=== PATIENT | male | born 1945 | race Hispanic/Latino ===

== ENCOUNTER → 2017-04-02 | Outpatient (CLI) | payer BC ==
[~2017-04-02] MED LIST: AMIODARONE HCL200 MG PO; ASPIR 8181 MG PO; ATORVASTATIN CA20 MG PO; BASAGLAR SC; CARVEDILOL12.5 MG PO; CEFEPIME-D1 GM/50 ML IVP; CLOPIDOGREL75 MG PO; COLLAGENASE OINTMENT 30 GM TUBE ONE; FUROSEMIDE40 MG PO; NIFEDIPINE10 MG PO; VANCOMYCIN1 GM/250 M IV
== END ==
LOC: WCC 11:07
PROVIDERS: ATTEND Podiatrist Foot & Ankle Surgery
DX: E11.621 Type 2 diabetes mellitus with foot ulcer (principal); R60.0 Localized edema; B96.5 Pseudomonas (aeruginosa) (mallei) (pseudomallei) as the cause of diseases classified elsewhere; B95.2 Enterococcus as the cause of diseases classified elsewhere; M86.671 Other chronic osteomyelitis, right ankle and foot; L97.512 Non-pressure chronic ulcer of other part of right foot with fat layer exposed; N18.3 Chronic kidney disease, stage 3 (moderate); I87.2 Venous insufficiency (chronic) (peripheral); I10 Essential (primary) hypertension; E78.2 Mixed hyperlipidemia; E03.8 Other specified hypothyroidism

== ENCOUNTER → 2017-04-14 | Outpatient (CLI) | payer BC ==
[~2017-04-14] MED LIST changes: -COLLAGENASE OINTMENT 30 GM TUBE ONE; +MINERAL OIL/PETROLAT/GLYCERI 6OZ BTL ONE
== END ==
LOC: WCC 10:48
PROVIDERS: ATTEND Podiatrist Foot & Ankle Surgery
DX: E11.621 Type 2 diabetes mellitus with foot ulcer (principal); M86.671 Other chronic osteomyelitis, right ankle and foot; L97.512 Non-pressure chronic ulcer of other part of right foot with fat layer exposed; R60.0 Localized edema; N18.3 Chronic kidney disease, stage 3 (moderate); I10 Essential (primary) hypertension; I87.2 Venous insufficiency (chronic) (peripheral); E78.2 Mixed hyperlipidemia; E03.8 Other specified hypothyroidism; B96.5 Pseudomonas (aeruginosa) (mallei) (pseudomallei) as the cause of diseases classified elsewhere

== ENCOUNTER → 2017-04-21 | Outpatient (CLI) | payer BC ==
[~2017-04-21] MED LIST changes: -MINERAL OIL/PETROLAT/GLYCERI 6OZ BTL ONE
== END ==
LOC: WCC 11:01
PROVIDERS: ATTEND Podiatrist Foot & Ankle Surgery
DX: E11.621 Type 2 diabetes mellitus with foot ulcer (principal); L97.512 Non-pressure chronic ulcer of other part of right foot with fat layer exposed; R60.0 Localized edema; M86.671 Other chronic osteomyelitis, right ankle and foot; N18.3 Chronic kidney disease, stage 3 (moderate); I87.2 Venous insufficiency (chronic) (peripheral); I10 Essential (primary) hypertension; E78.2 Mixed hyperlipidemia; E03.8 Other specified hypothyroidism; B96.5 Pseudomonas (aeruginosa) (mallei) (pseudomallei) as the cause of diseases classified elsewhere

== ENCOUNTER → 2017-05-07 | Outpatient (CLI) | payer BC | LOC: WCC 13:30 | PROVIDERS: ATTEND Podiatrist Foot & Ankle Surgery | DX: E11.621 Type 2 diabetes mellitus with foot ulcer (principal); M86.671 Other chronic osteomyelitis, right ankle and foot; L97.512 Non-pressure chronic ulcer of other part of right foot with fat layer exposed; R60.0 Localized edema; I87.2 Venous insufficiency (chronic) (peripheral); B96.5 Pseudomonas (aeruginosa) (mallei) (pseudomallei) as the cause of diseases classified elsewhere; N18.3 Chronic kidney disease, stage 3 (moderate); I10 Essential (primary) hypertension; E78.2 Mixed hyperlipidemia; E03.8 Other specified hypothyroidism ==

== ENCOUNTER → 2017-05-21 | Outpatient (CLI) | payer BC | LOC: WCC 13:27 | PROVIDERS: ATTEND Podiatrist Foot & Ankle Surgery | DX: E11.621 Type 2 diabetes mellitus with foot ulcer (principal); M86.671 Other chronic osteomyelitis, right ankle and foot; L97.512 Non-pressure chronic ulcer of other part of right foot with fat layer exposed; L97.519 Non-pressure chronic ulcer of other part of right foot with unspecified severity; R60.0 Localized edema; I87.2 Venous insufficiency (chronic) (peripheral); B96.5 Pseudomonas (aeruginosa) (mallei) (pseudomallei) as the cause of diseases classified elsewhere; N18.3 Chronic kidney disease, stage 3 (moderate); I10 Essential (primary) hypertension; E78.2 Mixed hyperlipidemia; E03.8 Other specified hypothyroidism ==

== ENCOUNTER → 2017-05-23 | Outpatient (CLI) | payer BC ==
[~2017-05-23] MED LIST changes: +MINERAL OIL/PETROLAT/GLYCERI 6OZ BTL ONE
== END ==
LOC: WCC 11:30
PROVIDERS: ATTEND Podiatrist Foot & Ankle Surgery
DX: E11.621 Type 2 diabetes mellitus with foot ulcer (principal); M86.671 Other chronic osteomyelitis, right ankle and foot; L97.512 Non-pressure chronic ulcer of other part of right foot with fat layer exposed; L97.519 Non-pressure chronic ulcer of other part of right foot with unspecified severity; R60.0 Localized edema; N18.3 Chronic kidney disease, stage 3 (moderate); I87.2 Venous insufficiency (chronic) (peripheral); I10 Essential (primary) hypertension; E78.2 Mixed hyperlipidemia; E03.8 Other specified hypothyroidism; B96.5 Pseudomonas (aeruginosa) (mallei) (pseudomallei) as the cause of diseases classified elsewhere

== ENCOUNTER → 2017-05-28 | Outpatient (CLI) | payer BC ==
[~2017-05-28] MED LIST changes: -MINERAL OIL/PETROLAT/GLYCERI 6OZ BTL ONE
== END ==
LOC: WCC 12:00
PROVIDERS: ATTEND Podiatrist Foot & Ankle Surgery
DX: E11.621 Type 2 diabetes mellitus with foot ulcer (principal); M86.671 Other chronic osteomyelitis, right ankle and foot; L97.512 Non-pressure chronic ulcer of other part of right foot with fat layer exposed; L97.519 Non-pressure chronic ulcer of other part of right foot with unspecified severity; R60.0 Localized edema; N18.3 Chronic kidney disease, stage 3 (moderate); I10 Essential (primary) hypertension; I87.2 Venous insufficiency (chronic) (peripheral); B96.5 Pseudomonas (aeruginosa) (mallei) (pseudomallei) as the cause of diseases classified elsewhere; E78.2 Mixed hyperlipidemia; E03.8 Other specified hypothyroidism

== ENCOUNTER → 2017-05-30 | Outpatient (CLI) | payer BC ==
[~2017-05-30] MED LIST changes: +MINERAL OIL/PETROLAT/GLYCERI 6OZ BTL ONE
== END ==
LOC: WCC 11:04
PROVIDERS: ATTEND Podiatrist Foot & Ankle Surgery
DX: E11.621 Type 2 diabetes mellitus with foot ulcer (principal); M86.671 Other chronic osteomyelitis, right ankle and foot; L97.512 Non-pressure chronic ulcer of other part of right foot with fat layer exposed; R60.0 Localized edema; I87.2 Venous insufficiency (chronic) (peripheral); B96.5 Pseudomonas (aeruginosa) (mallei) (pseudomallei) as the cause of diseases classified elsewhere; N18.3 Chronic kidney disease, stage 3 (moderate); I10 Essential (primary) hypertension; E78.2 Mixed hyperlipidemia; E03.8 Other specified hypothyroidism

== ENCOUNTER → 2017-09-26 | Day surgery (SDC) | payer BC ==
[2017-09-25 12:52] LABS: BASOPHILS % 0.4 % (0.0-1.0); EOSINOPHILS # (AUTO) 0.3 (0.0-0.4); EOSINOPHILS % 3.8 % (0.0-6.0); HEMOGLOBIN 9.9 g/dL (14.0-18.0); LYMPHOCYTES # (AUTO) 1.8 (1.0-3.2); LYMPHOCYTES % 24.1 % (18.0-39.1); MEAN CORPUSCULAR HGB CONC 31.9 g/dL (31-35); MEAN CORPUSCULAR VOLUME 90.9 fL (81-99); MONOCYTES # (AUTO) 0.6 (0.2-0.8); MONOCYTES % 8.4 % (4.4-11.3); NEUTROPHILS # (AUTO) 4.7 (2.1-6.9); NEUTROPHILS % 62.6 % (38.7-80.0); PLATELET COUNT 227 x10e3/uL (140-360); RED BLOOD COUNT 3.41 x10e6/uL (4.3-5.7); RED CELL DISTRIBUTION WIDTH 19.5 % (11.7-14.4)
[2017-09-25 13:07] LABS: ANION GAP 13.4 mmol/L (8-16); CALCIUM 9.4 mg/dL (8.4-10.2); CREATININE, SERUM 1.79 mg/dL (0.72-1.25); POTASSIUM 5.4 mmol/L (3.5-5.1)
[~2017-09-26] MED LIST changes: +BASAGLAR SQ; +BUPIVACAINE HCL 0.5% INJ 30 ML VIAL INJ ONE; +CEFAZOLIN SOD 1 GM VIAL ONE; +FENTANYL CITRATE/PF 100MCG/2 ML INJ ONE; +LASIX40 MG PO; +LIDOCAINE HCL 2% LOCAL INJ 5 ML SDV VIAL INJ ONE; +MIDAZOLAM HCL 2 MG/2 ML VIAL ONE; -MINERAL OIL/PETROLAT/GLYCERI 6OZ BTL ONE; +NEOSTIGMINE 1 MG/ML 10ML VIAL ONE; +PROPOFOL IV EMULSION 10 MG/ML 20 ML VIAL ONE; +SYNTHROID100 MCG PO; +TOPROL XL25 MG PO
--- NOTE | 2017-09-29 11:05 | Operative Report ---
DATE OF PROCEDURE: September 26, 2017 PREOPERATIVE DIAGNOSIS: Left foot osteomyelitis, hallux and 2nd digit. POSTOPERATIVE DIAGNOSIS: Left foot osteomyelitis, hallux and 2nd digit. PLANNED PROCEDURE: Left 1st and 2nd digit amputation. SURGEON: Dr. Marbin DPM BREAKFAST MANAGER: Shabbir Justin DPM ANESTHESIA: General with a postoperative block consisting of 10 mL of 0.5% Marcaine plain. HEMOSTASIS: Esmarch tourniquet applied for approximately 25 minutes. MATERIALS: 3-0 nylon. ESTIMATED BLOOD LOSS: 10 mL. PATHOLOGY: Left hallux and 2nd digits sent for gross specimen. PROCEDURE NOTE: The patient was seen in the preoperative waiting room where the correct procedure and site was identified. The patient was brought into the operating room and placed on the operating table in the supine position. General anesthesia was initiated at this time. The left foot, ankle and leg were then scrubbed, prepped and draped in the usual aseptic manner. The left foot, ankle and leg had an Esmarch tourniquet applied for approximately 25 minutes. Attention was directed to the distal aspect of the patient's left foot where the lateral aspect of the left hallux had a large ulceration, as well as the medial aspect of left 2nd digit. Both digits are approximately 1.5 to 2 times larger than normal. The wounds probed deep to bone. The decision was made to proceed with an amputation of the left 1st and 2nd digit. Utilizing a large converging semi-elliptical incision encompassing the 1st and 2nd digit, the incision was started. The incision was carried down deep to the level of bone. Utilizing a #15, the hallux and 2nd digit were disarticulated and passed off to the back table. There was noted to be large amounts of necrotic and devitalized tissue. Very minimal bleeding is noted during the procedure. Next, utilizing a 15 blade the wound was debrided of all necrotic and devitalized tissue. The wound was then flushed with copious amounts of sterile saline mixed with Bacitracin with a Pulsavac. The wound was reapproximated with using simple interrupted sutures of 3-0 nylon. Next, the incision site was dressed with Adaptic, 4 x 4's, Kerlix, Juan wrap, and a postop shoe. The patient tolerated the procedure and anesthesia well. Patient was transferred to the postoperative recovery room with vital signs stable and vascular status intact. The patient was monitored there for a short period time before being sent home with follow written and oral instructions: 1. Keep the dressing clean, dry and tact. 2. The patient is to remain nonweightbearing in a postop shoe and to avoid any ambulation until being seen in the office. 3. The patient was given the office number and instructed to contact us if any problems should arise. DICTATED BY SHABBIR JUSTIN DPM Job#: [id number] BILL
== END | disposition home or self-care (01) ==
LOC: OR 05:25
PROVIDERS: ATTEND Podiatrist Foot & Ankle Surgery
DX: M86.172 Other acute osteomyelitis, left ankle and foot (principal); M86.672 Other chronic osteomyelitis, left ankle and foot; I70.245 Atherosclerosis of native arteries of left leg with ulceration of other part of foot; L97.524 Non-pressure chronic ulcer of other part of left foot with necrosis of bone; E11.621 Type 2 diabetes mellitus with foot ulcer; Z79.4 Long term (current) use of insulin; E11.22 Type 2 diabetes mellitus with diabetic chronic kidney disease; I13.0 Hypertensive heart and chronic kidney disease with heart failure and stage 1 through stage 4 chronic kidney disease, or unspecified chronic kidney disease; N18.9 Chronic kidney disease, unspecified; I50.9 Heart failure, unspecified; E78.00 Pure hypercholesterolemia, unspecified; Z01.810 Encounter for preprocedural cardiovascular examination; Z01.812 Encounter for preprocedural laboratory examination; Z79.02 Long term (current) use of antithrombotics/antiplatelets; Z79.82 Long term (current) use of aspirin
CPT/HCPCS: 28810 ×2; 36415 ×2; 80048; 82948; 85025; 88305; 88311; 93005; J0690; J2001; J2250; J2710

== ENCOUNTER 2017-11-24 12:41 | Inpatient (IN) | payer MEDICARE, BC ==
[~2017-11-24] VITALS: Ht 170.2 cm; Wt 92.1 kg
[~2017-11-24 12:41] MED LIST changes: -BUPIVACAINE HCL 0.5% INJ 30 ML VIAL INJ ONE; -CEFAZOLIN SOD 1 GM VIAL ONE; -FENTANYL CITRATE/PF 100MCG/2 ML INJ ONE; -LIDOCAINE HCL 2% LOCAL INJ 5 ML SDV VIAL INJ ONE; -MIDAZOLAM HCL 2 MG/2 ML VIAL ONE; -NEOSTIGMINE 1 MG/ML 10ML VIAL ONE; -PROPOFOL IV EMULSION 10 MG/ML 20 ML VIAL ONE
[2017-11-24 13:00] VITALS: BP 139/64
[2017-11-24 13:05] VITALS: BP 139/64
[2017-11-24 13:29] LABS: BASOPHILS % 0.5 % (0.0-1.0); EOSINOPHILS # (AUTO) 0.2 (0.0-0.4); EOSINOPHILS % 2.6 % (0.0-6.0); HEMATOCRIT 33.3 % (38.2-49.6); HEMOGLOBIN 10.6 g/dL (14.0-18.0); LYMPHOCYTES # (AUTO) 1.8 (1.0-3.2); LYMPHOCYTES % 20.6 % (18.0-39.1); MEAN CORPUSCULAR HEMOGLOBIN 28.6 pg (28-32); MEAN CORPUSCULAR HGB CONC 31.8 g/dL (31-35); MONOCYTES # (AUTO) 0.8 (0.2-0.8); MONOCYTES % 9.2 % (4.4-11.3); NEUTROPHILS # (AUTO) 5.7 (2.1-6.9); NEUTROPHILS % 66.3 % (38.7-80.0); PLATELET COUNT 235 x10e3/uL (140-360); RED CELL DISTRIBUTION WIDTH 16.9 % (11.7-14.4)
[2017-11-24 13:35] LABS: INR 1.24; PROTHROMBIN TIME 14.7 seconds (11.9-14.5)
[2017-11-24 13:36] LABS: PARTIAL THROMBOPLASTIN TIME 30.7 seconds (23.8-35.5)
[2017-11-24 13:40] LABS: ANION GAP 13.9 mmol/L (8-16); CALCIUM 9.4 mg/dL (8.4-10.2); CREATININE, SERUM 2.64 mg/dL (0.72-1.25); POTASSIUM 4.9 mmol/L (3.5-5.1)
[2017-11-24] MEDS: CEFEPIME HCL 1 GM VIAL IV SCH (14:11)
[2017-11-24] MEDS ORDERED: DEXTROSE 50% SYRINGE 50 ML IV PRN (14:45)
--- NOTE | 2017-11-24 14:45 | Diagnostic Imaging Report ---
PROCEDURE:X-RAY LEFT FOOT, COMPLETE COMPARISON:None. INDICATIONS:OSTEOMYELITIS FINDINGS: The bones are diffusely demineralized. The first toe is amputated at the metatarsal head with a small amount of air or scar at the tibial margin of the first metatarsal. There is no evidence of cortical irregularity or periosteal new bone formation at the osteotomy site. The remainder of the digits are intact without focal osseous lesion or periosteal new bone formation. The mid foot and hindfoot are intact with a small plantar calcaneal spur. Diffuse soft tissue swelling of the forefoot without radiopaque foreign body. Extensive vascular calcifications are present. CONCLUSION: No radiographic evidence of osteomyelitis. Dictated by: Yaneth Garcia M.D. on 11/24/2017 at 14:49 Electronically approved by: Yaneth Garcia M.D. on 11/24/2017 at 14:49
--- NOTE | 2017-11-24 14:50 | Diagnostic Imaging Report ---
PROCEDURE: CHEST SINGLE (PORTABLE) COMPARISON: None. INDICATIONS: CHF FINDINGS: LUNGS: No consolidations or edema. Pulmonary vasculature and interstitium are normal. PLEURA: No effusions or pneumothorax. HEART \T\ MEDIASTINUM: The heart is within normal size-limits. BONES \T\ SOFT TISSUES: Unremarkable. CONCLUSION: No acute thoracic abnormality. Dictated by: Yaneth Garcia M.D. on 11/24/2017 at 14:53 Electronically approved by: Yaneth Garcia M.D. on 11/24/2017 at 14:53
[2017-11-24] MEDS ORDERED: SODIUM CHLORIDE 0.9% 250ML 250 ML ONE (15:34)
[2017-11-24] MEDS: VANCOMYCIN 1GM/NS 250 ML 250 ML IV SCH (15:42)
--- NOTE | 2017-11-24 15:59 | History and Physical ---
CHIEF COMPLAINT: Left foot infection. HISTORY OF PRESENT ILLNESS: This is a 72-year-old man who presents to [facility] with a chronic left foot wound. The patient sees a local hospice executive director, Dr. Zazueta. The patient has a working diagnosis of left foot osteomyelitis. The patient is actually scheduled for elective partial left first toe amputation with the possibility of transmetatarsal amputation of the left foot. Patient currently voices no complaints. Patient states the pain is well controlled. On admission patient was found to have a BUN and creatinine of 46 and 2.64 but he states he has history of advanced kidney disease. Patient had blood work done today and was found to have a hemoglobin of 10.6 g/dL. Patient's white blood cell count is 8,500 with 66% segmented neutrophils. Patient's prothrombin time and iron level is 14.7 and 1.24 respectively. REVIEW OF SYSTEMS GENERAL: Weight has been stable. No fever, chills. HEENT: No headaches. No vision changes. CARDIOVASCULAR/RESPIRATORY: Patient does complain of dyspnea on exertion but no shortness of breath at rest. Patient denies any chest pain or tightness. Denies any chronic cough. GI: No nausea, vomiting or constipation. : No dysuria, hematuria. NEUROMUSCULAR: Complains of chronic wound in his left foot. ALLERGIES: NO KNOWN DRUG ALLERGIES. FAMILY HISTORY: Both parents with type 2 diabetes mellitus. Mother had coronary artery disease. SURGICAL HISTORY 1. Right fifth toe amputation and right fifth metatarsal resection in 2016. 2. Bilateral lower extremity arterial stent placement. 3. Successful cardioversion because of atrial fibrillation in 2014. PAST MEDICAL HISTORY 1. Type 2 diabetes mellitus. 2. Peripheral artery disease. 3. Chronic systolic congestive heart failure. 4. Paroxysmal atrial fibrillation. 5. Hypertensive heart disease. 6. Stage IV coronary artery disease. 7. Anemia secondary to chronic kidney disease. 8. Hyperlipidemia. 9. Hypothyroidism. 10. Obesity. 11. Bilateral knee degenerative joint disease. HOME MEDICATIONS 1. Amiodarone 200 mg daily. 2. Aspirin 81 mg daily. 3. Atorvastatin 40 mg p.o. nightly. 4. Clopidogrel 75 mg daily. 5. Furosemide 40 mg daily. 6. Levothyroxine 100 mcg daily. 7. Metoprolol succinate 25 mg daily. 8. Basaglar insulin 15 units subcutaneous every evening. PHYSICAL EXAMINATION GENERAL: He is awake, alert, fully oriented. Very pleasant and cooperative with exam. VITAL SIGNS: Blood pressure is 139/64, pulse 68, respiratory rate 18, oxygen saturation 100% room air, temperature 97.6. Height 5 foot 7 inch, weight is 203 pounds. Calculated body mass is 31. INTEGUMENT: Skin is warm and dry. Slight pallor, no jaundice or diaphoresis. HEENT: Anicteric sclerae. Moist mucous membranes. Patient has bilateral arcus seniles. NECK: Supple. No evidence of jugular venous distention. CARDIOVASCULAR: Distant heart sounds. Regular rate and rhythm with a faint systolic ejection murmur and S3 gallop. LUNGS: No rales, no rhonchi. ABDOMEN: Benign. EXTREMITIES: No edema but patient has poorly palpable pulses in bilateral dorsalis pedis. The patient has evidence of right fifth toe amputation. The foot is currently dressed. NEUROLOGIC: No gross focal deficits appreciated. IMPRESSION 1. Left foot osteomyelitis. 2. Peripheral artery disease. 3. Type 2 diabetes mellitus. 4. Chronic systolic congestive heart failure. 5. Stage 4 chronic kidney disease. PLAN 1. Will order chest x-ray and 12-lead EKG. 2. Continue intravenous antibiotics. 3. Will add intravenous vancomycin. 4. Consult podiatry, Dr. Zazueta. 5. Tentative surgery on November 25, 2017. 6. Blood glucose control. 7. Pain control. I spent 45 minutes in the care of this patient. Job#: [id number] TRICE
[2017-11-24] MEDS: FUROSEMIDE 40 MG TAB PO SCH (16:36)
[2017-11-24] MEDS: METOPROLOL SUCCINATE 25 MG TAB XL PO SCH (16:36)
[2017-11-24] MEDS: AMIODARONE HCL 200 MG TAB PO SCH (16:36)
[2017-11-24 16:51] VITALS: BP 164/79
[2017-11-24] MEDS: INSULIN LISPRO 100 UNIT/1 ML 3ML VIAL SQ SCH ×2 (17:41→22:00)
[2017-11-24 20:00] VITALS: BP 138/70
[2017-11-24] MEDS: INSULIN DETEMIR 100 UNIT/ML PEN SQ SCH (22:00)
[2017-11-24] MEDS: ATORVASTATIN 40 MG TAB PO SCH (22:00)
[2017-11-24 22:43] VITALS: BP 138/70
[2017-11-25] VITALS (8 sets, daily range): BP systolic 121–162; BP diastolic 60–73
[2017-11-25] MEDS: CEFEPIME HCL 1 GM VIAL IV SCH ×2 (01:27→14:36)
[2017-11-25] MEDS: LEVOTHYROXINE SODIUM 100 MCG TAB PO SCH (06:00)
[2017-11-25 06:31] LABS: BASOPHILS % 0.4 % (0.0-1.0); EOSINOPHILS # (AUTO) 0.2 (0.0-0.4); EOSINOPHILS % 2.4 % (0.0-6.0); HEMATOCRIT 32.5 % (38.2-49.6); HEMOGLOBIN 10.5 g/dL (14.0-18.0); LYMPHOCYTES # (AUTO) 0.8 (1.0-3.2); LYMPHOCYTES % 10.7 % (18.0-39.1); MEAN CORPUSCULAR HEMOGLOBIN 28.6 pg (28-32); MEAN CORPUSCULAR HGB CONC 32.3 g/dL (31-35); MEAN CORPUSCULAR VOLUME 88.6 fL (81-99); MONOCYTES # (AUTO) 0.6 (0.2-0.8); MONOCYTES % 7.5 % (4.4-11.3); NEUTROPHILS % 78.3 % (38.7-80.0); PLATELET COUNT 233 x10e3/uL (140-360); RED BLOOD COUNT 3.67 x10e6/uL (4.3-5.7); RED CELL DISTRIBUTION WIDTH 16.5 % (11.7-14.4)
[2017-11-25 07:01] LABS: ALBUMIN 2.9 g/dL (3.5-5.0); ALBUMIN/GLOBULIN RATIO 0.8 (0.8-2.0); ANION GAP 13.6 mmol/L (8-16); CALCIUM 9.2 mg/dL (8.4-10.2); CREATININE, SERUM 2.28 mg/dL (0.72-1.25); POTASSIUM 4.6 mmol/L (3.5-5.1)
[2017-11-25] MEDS ORDERED: VANCOMYCIN HCL 1 GM VIAL ONE (07:19)
[2017-11-25] MEDS: INSULIN LISPRO 100 UNIT/1 ML 3ML VIAL SQ SCH ×4 (07:30→20:02)
[2017-11-25] MEDS ORDERED: BUPIVACAINE HCL 0.5% INJ 30 ML VIAL INJ ONE (08:20)
--- NOTE | 2017-11-25 08:41 | Operative Report ---
DATE OF PROCEDURE: November 25, 2017 PREOPERATIVE DIAGNOSIS: Left foot osteomyelitis. POSTOPERATIVE DIAGNOSIS: Left foot osteomyelitis. PLANNED PROCEDURE: Left partial 1st ray amputation. SURGEON: Dr. Marbin DPM EXTERMINATOR: Shabbir Justin DPM ANESTHESIA: IV sedation with a local block consisting of 10 mL of 0.5% Marcaine plain. HEMOSTASIS: Esmarch tourniquet applied for approximately 15 minutes. MATERIALS: 3-0 nylon. ESTIMATED BLOOD LOSS: Less than 10 mL. PATHOLOGY: Bone and soft tissue sent for gross specimen. DETAILS OF PROCEDURE: Patient was seen in the preoperative waiting room where the correct procedure and site was identified. The patient was brought to the operating room and stayed in the preoperative bed during the procedure. IV sedation was initiated at this time. Local anesthesia was infiltrated into the 1st ray in a ring block fashion. The left foot, ankle and leg was then scrubbed, prepped and draped in the usual aseptic manner. An Esmarch tourniquet was applied for approximately 20 minutes. Attention was directed the medial aspect of the patient's left foot. He has a history of prior left and 2nd digit amputation. There is an open ulcer on the left medial aspect of the foot, which probes deep down to the level of the 1st metatarsal head which is visible through the ulcer site. Utilizing a #15 blade, 2 large converging semi-elliptical incisions were made excising the soft tissue defect. The incision was carried down directly to the level of bone. There was noted to be osteolytic changes to the 1st metatarsal head. Dissection was carried back to the level of the midshaft. Utilizing a sagittal saw, the metatarsal head was resected and passed off to the back table. Utilizing a #15 blade, the sesamoids were noted to the plantar aspect of the 1st metatarsal head and were excised and sent as part of the gross specimen with the 1st metatarsal head. The wound was then debrided of all necrotic and devitalized tissue. The wound was then flushed with copious amounts of sterile saline mixed with vancomycin with a Pulsavac. The wound was then reapproximated utilizing simple interrupted sutures with 3-0 nylon. The patient tolerated the procedure and anesthesia well. Patient was transferred to the postoperative recovery unit with vital signs stable and vascular status intact. Patient was monitored there for a short period of time before being readmitted to the floor for postoperative monitoring, pain control and IV antibiotics. The podiatry service will continue to monitor as an inpatient. DICTATED BY SHABBIR JUSTIN DPM Job#: [id number] BILL
[2017-11-25] MEDS: FUROSEMIDE 40 MG TAB PO SCH (09:42)
[2017-11-25] MEDS: AMIODARONE HCL 200 MG TAB PO SCH (09:42)
[2017-11-25] MEDS: METOPROLOL SUCCINATE 25 MG TAB XL PO SCH (09:43)
[2017-11-25] MEDS: VANCOMYCIN 1GM/NS 250 ML 250 ML IV SCH (15:34)
[2017-11-25] MEDS ORDERED: FENTANYL CITRATE/PF 100MCG/2 ML INJ ONE (16:22)
[2017-11-25] MEDS ORDERED: MIDAZOLAM HCL 2 MG/2 ML VIAL ONE (16:22)
[2017-11-25] MEDS ORDERED: HYDROCODONE/APAP 7.5MG-325MG 1 EA TAB PO PRN (19:15)
[2017-11-25] MEDS: ATORVASTATIN 40 MG TAB PO SCH (20:02)
[2017-11-25] MEDS: INSULIN DETEMIR 100 UNIT/ML PEN SQ SCH (20:02)
[2017-11-26] VITALS: BP 101/51
[2017-11-26] MEDS: CEFEPIME HCL 1 GM VIAL IV SCH ×2 (01:15→12:37)
[2017-11-26 04:00] VITALS: BP 108/51
[2017-11-26] MEDS: LEVOTHYROXINE SODIUM 100 MCG TAB PO SCH (06:02)
[2017-11-26 06:33] LABS: BASOPHILS % 0.4 % (0.0-1.0); EOSINOPHILS # (AUTO) 0.3 (0.0-0.4); EOSINOPHILS % 3.3 % (0.0-6.0); HEMATOCRIT 30.8 % (38.2-49.6); LYMPHOCYTES # (AUTO) 1.2 (1.0-3.2); LYMPHOCYTES % 14.9 % (18.0-39.1); MEAN CORPUSCULAR HGB CONC 32.5 g/dL (31-35); MEAN CORPUSCULAR VOLUME 89.3 fL (81-99); MONOCYTES # (AUTO) 1.2 (0.2-0.8); MONOCYTES % 14.6 % (4.4-11.3); NEUTROPHILS # (AUTO) 5.4 (2.1-6.9); NEUTROPHILS % 66.4 % (38.7-80.0); PLATELET COUNT 205 x10e3/uL (140-360); RED BLOOD COUNT 3.45 x10e6/uL (4.3-5.7); RED CELL DISTRIBUTION WIDTH 16.4 % (11.7-14.4)
[2017-11-26 06:57] LABS: ANION GAP 12.6 mmol/L (8-16); CALCIUM 8.7 mg/dL (8.4-10.2); CREATININE, SERUM 2.35 mg/dL (0.72-1.25); POTASSIUM 4.6 mmol/L (3.5-5.1)
[2017-11-26] MEDS: INSULIN LISPRO 100 UNIT/1 ML 3ML VIAL SQ SCH ×2 (07:30→12:37)
[2017-11-26 08:00] VITALS: BP 103/56
[2017-11-26 08:40] VITALS: BP 103/56
[2017-11-26] MEDS: FUROSEMIDE 40 MG TAB PO SCH (08:42)
[2017-11-26] MEDS: AMIODARONE HCL 200 MG TAB PO SCH (08:42)
[2017-11-26] MEDS: METOPROLOL SUCCINATE 25 MG TAB XL PO SCH (09:00)
[2017-11-26 12:00] VITALS: BP 105/57
[2017-11-26] MEDS: VANCOMYCIN 1GM/NS 250 ML 250 ML IV SCH (13:05)
[2017-11-26 15:35] VITALS: BP 105/63
--- NOTE | 2017-11-27 16:40 | Discharge Summary ---
ADMITTING DIAGNOSES 1. Left foot osteomyelitis. 2. Peripheral artery disease. 3. Type-2 diabetes mellitus. 4. Chronic systolic congestive heart failure. 5. Stage-4 chronic kidney disease. DISCHARGE DIAGNOSES 1. Status post left partial 1st ray amputation. 2. Left foot osteomyelitis, resolving. 3. Stage-4 chronic kidney disease. 4. Chronic systolic congestive heart failure. 5. Type-2 diabetes mellitus. 6. Anemia secondary to chronic kidney disease/chronic disease. HOSPITAL COURSE: This is a 72-year-old man who was initially admitted to [facility] with diagnosis of left foot osteomyelitis. During this hospitalization, the patient underwent left partial 1st ray amputation. The surgery was performed by his quality assurance supervisor, namely Dr. Zazueta. The patient tolerated the surgery quite well. During this hospitalization, the patient did receive intravenous antibiotics, namely intravenous cefepime and vancomycin, which he tolerated very well. The patient's brief hospitalization was unremarkable. On the day of discharge, the patient's white blood cell count was 8000 with 66% segmented neutrophils. On the date of discharge, the patient's hemoglobin was 10 g/dL. Also, on the date of discharge, the patient's BUN and creatinine were 41 and 2.35 respectively. The patient's condition on discharge is stable. DISCHARGE MEDICATIONS 1. Amiodarone 200 mg daily. 2. Aspirin 81 mg daily. 3. Atorvastatin 40 mg p.o. nightly. 4. Clopidogrel 75 mg daily. 5. Furosemide 40 mg daily. 6. Levothyroxine 100 mcg daily. 7. Metoprolol succinate 25 mg daily. 8. Basaglar insulin 15 units subcutaneous daily. FOLLOWUP INSTRUCTIONS: The patient will follow up with Dr. Zazueta in 1 week and with his primary care physician within [address] Zazueta, the quality assurance supervisor, will prescribe appropriate antibiotics as an outpatient according to the results of previously taken wound cultures. CHRISTIANO LOZANO MD Job#: [id number] cc:Chava ZAZUETA DPM
[2017-11-28] MEDS ORDERED: CLOPIDOGREL BISULFATE 75 MG TAB PO SCH (09:00)
[2017-11-28] MEDS ORDERED: ASPIRIN 81 MG CHEW TAB PO SCH (09:00)
== END 2017-11-26 15:48 | disposition home or self-care (01) | DRG 475 ==
LOC: MED/SURG3 12:41
PROVIDERS: ADMIT Internal Medicine; ATTEND Internal Medicine
PROC: 0Y6N0Z9 Detachment at Left Foot, Partial 1st Ray, Open Approach (ICD-10-PCS; principal; 2017-11-24)
DX: M86.8X7 Other osteomyelitis, ankle and foot (principal); I50.22 Chronic systolic (congestive) heart failure; I13.0 Hypertensive heart and chronic kidney disease with heart failure and stage 1 through stage 4 chronic kidney disease, or unspecified chronic kidney disease; N18.4 Chronic kidney disease, stage 4 (severe); E11.22 Type 2 diabetes mellitus with diabetic chronic kidney disease; E11.65 Type 2 diabetes mellitus with hyperglycemia; Z79.4 Long term (current) use of insulin
CPT/HCPCS: 36415; 71045; 80048; 80053; 80202; 82948; 85025; 85610; 85730; 88305; 88311; 93005; J0692; J2250; J3370; J7050

== ENCOUNTER → 2018-03-17 | Day surgery (SDC) | payer BC, MEDICARE ==
[2018-03-16 12:17] LABS: BASOPHILS # (AUTO) 0.1 (0.0-0.1); BASOPHILS % 1.1 % (0.0-1.0); EOSINOPHILS # (AUTO) 0.5 (0.0-0.4); EOSINOPHILS % 6.4 % (0.0-6.0); HEMATOCRIT 40.7 % (38.2-49.6); HEMOGLOBIN 12.4 g/dL (14.0-18.0); LYMPHOCYTES # (AUTO) 1.8 (1.0-3.2); LYMPHOCYTES % 23.3 % (18.0-39.1); MEAN CORPUSCULAR HEMOGLOBIN 29.2 pg (28-32); MEAN CORPUSCULAR HGB CONC 30.5 g/dL (31-35); MEAN CORPUSCULAR VOLUME 95.8 fL (81-99); MONOCYTES # (AUTO) 0.5 (0.2-0.8); MONOCYTES % 6.4 % (4.4-11.3); NEUTROPHILS # (AUTO) 4.9 (2.1-6.9); NEUTROPHILS % 62.3 % (38.7-80.0); PLATELET COUNT 206 x10e3/uL (140-360); RED BLOOD COUNT 4.25 x10e6/uL (4.3-5.7); RED CELL DISTRIBUTION WIDTH 14.1 % (11.7-14.4)
[2018-03-16 12:32] LABS: ANION GAP 16.7 mmol/L (8-16); CALCIUM 9.9 mg/dL (8.4-10.2); CREATININE, SERUM 2.79 mg/dL (0.72-1.25); POTASSIUM 4.7 mmol/L (3.5-5.1)
--- NOTE | 2018-03-16 12:59 | Diagnostic Imaging Report ---
EXAMINATION: PA and lateral views of the chest. COMPARISON: None CLINICAL HISTORY: Preoperative study, foot surgery DISCUSSION: Lines/tubes: None. Lungs: The lungs are well inflated and clear. There is no evidence of pneumonia or pulmonary edema. Pleura: There is no pleural effusion or pneumothorax. Heart and mediastinum: The cardiomediastinal silhouette is normal. Bones and soft tissues: No acute bony abnormalities. Degenerative changes in the thoracic spine IMPRESSION: No acute cardiopulmonary abnormalities. Signed by: Dr. Eliseo De La Vega M.D. on 03/16/2018 12:56 PM
[~2018-03-17] MED LIST changes: +BUPIVACAINE HCL 0.5% INJ 30 ML VIAL INJ ONE; +DEXAMETHASONE SOD PHOS INJ 4 MG/ML VIAL ONE; +DOXYCYCLINE HY100 MG PO; +FENTANYL CITRATE/PF 100MCG/2 ML INJ ONE; +LIDOCAINE HCL 2% LOCAL INJ 5 ML SDV VIAL INJ ONE; +ONDANSETRON HCL INJ 2 MG/ML VIAL ONE; +PROPOFOL IV EMULSION 10 MG/ML 20 ML VIAL ONE; +SEVOFLURANE INHAL SOLN 250 ML PEN BTL ONE
[2018-03-17] MEDS: CEFAZOLIN SOD 1 GM VIAL ONE (06:57)
--- NOTE | 2018-03-17 08:51 | Operative Report ---
DATE OF PROCEDURE: March 17, 2018 PREOPERATIVE DIAGNOSIS: Left foot osteomyelitis. POSTOPERATIVE DIAGNOSIS: Left foot osteomyelitis. PLANNED PROCEDURE: Left transmetatarsal amputation. SURGEON: Chava Zazueta DPM SUPERVISOR BRAIDING: Shabbir Bautista DPM ANESTHESIA: General with a postoperative block consisting of 10 mL of 0.5% Marcaine plain. HEMOSTASIS: Esmarch tourniquet applied for approximately 30 minutes. MATERIALS: 3-0 nylon. ESTIMATED BLOOD LOSS: Less than 10 mL. PATHOLOGY: Left forefoot sent for gross specimen. PROCEDURE NOTE: The patient was seen in the preoperative waiting room, where the correct procedure and site were identified. The patient was brought to the operating room and placed on the operating table in the supine position. General anesthesia was initiated at this time. The left foot, ankle and leg were scrubbed, prepped and draped in the usual aseptic manner. The left foot, ankle and leg were exsanguinated with an Esmarch bandage, and the Esmarch tourniquet was left on. Attention was directed to the distal aspect of the patient's left foot, where a previous hallux, partial 1st ray and left 2nd digit amputation had already been performed. The remainder of the digits were encompassed in 2 conversing semielliptical incisions, starting at the previously amputated left 1st ray and ending at the level of the 5th metatarsal. The incision was carried through the subcutaneous tissue down to the level of bone. At this point, the digits were disarticulated from the metatarsophalangeal joints and passed off to the back table. There was a small fluid collection near the 5th metatarsal head with a small deep ulceration. Utilizing intraoperative fluoroscopy, the correct parabola was noted. The wound was then flushed with copious amounts of sterile saline with a Pulsavac. The wound edges were prepared for closure by removing all dog ears, debulking fat. All tendons were dissected, pulled distally, cut and allowed to retract proximally into the foot. The incision site was reapproximated utilizing simple interrupted sutures of 3-0 nylon. The incision site was then dressed with Adaptic, 4 x 4's, Kerlix, Juan wrap, and a postop shoe. The patient tolerated the procedure and anesthesia well. The patient was then transferred to the postoperative recovery unit with vital signs stable and vascular status intact. The patient was monitored there for a short period of time before being sent home with the following written and oral instructions: 1. Keep the dressing clean, dry and intact. 2. The patient is to remain nonweightbearing to the left lower extremity and to avoid any ambulation until being seen in the office. 3. The patient was given the office number and instructed to contact us if any problems should arise. Dictated by Shabbir Bautista DPM. SSoy ZAZUETA DPM Job#: [id number] JAVED CINTRON
[2018-03-17 09:20] VITALS: BP 148/62
--- OUTSIDE RECORDS SUMMARY | 2018-03-17 14:32 | XMS REPORT ---
[facility] Address Unknown Phone Unavailable Care Team Providers Care Investigative Analyst Name Role Phone Jessie POSADAS Unavailable Unavailable CHRISTIANO LOZANO Unavailable Unavailable Problems This patient has no known problems. Allergies, Adverse Reactions, Alerts This patient has no known allergies or adverse reactions. Medications This patient has no known medications. Results Test Description Test Time Test Comments Text Results Atomic Results Result Comments CHEST 2 VIEWS 2018-03-16 12:55:00 [place] [address] Patient Name: LANA MCMILLAN MR #: [id number] : 1945 Age/Sex: 72/M Req #: [id number] Adm Physician: Ordered by: Jessie POSADAS DPM Report #: [id number] Location: OR Room/Bed: Procedure: [id number] DX/CHEST 2 VIEWS Exam Date: 03/16/18 Exam Time: 1220 REPORT STATUS: Signed EXAMINATION: PA and lateral views of the chest. COMPARISON: None CLINICAL HISTORY: Preoperative study, foot surgery DISCUSSION: Lines/tubes: None. Lungs: The lungs are well inflated and clear. There is no evidence of pneumonia or pulmonary edema. Pleura: There is no pleural effusion or pneumothorax. Heart and mediastinum: The cardiomediastinal silhouette is normal. Bones and soft tissues: No acute bony abnormalities. Degenerative changes in the thoracic spine IMPRESSION: No acute cardiopulmonary abnormalities. Signed by: Dr. Junie Garcia M.D. on 03/16/2018 12:56 PM Dictated By: JUNIE GARCIA MD [id number] Transcribed By: VINCE on 03/16/18 1256 COPY TO: Jessie POSADAS DPM CHEST SINGLE (PORTABLE) 2017-11-24 14:53:00 [place] [address] Patient Name: LANA MCMILLAN MR #: [id number] : 1945 Age/Sex: 72/M Req #: [id number] Adm Physician: CHRISTIANO LOZANO MD Ordered by: CHRISTIANO LOZANO MD Report #: [id number] Location: [place] [address] Room/Bed: [facility] Procedure: [id number] DX/CHEST SINGLE (PORTABLE) Exam Date: 11/24/17 Exam Time: 1430 REPORT STATUS: Signed PROCEDURE: CHEST SINGLE (PORTABLE) COMPARISON: None. INDICATIONS: CHF FINDINGS: LUNGS: No consolidations or edema. Pulmonary vasculature and interstitium are normal. PLEURA: No effusions or pneumothorax. HEART T MEDIASTINUM: The heart is within normal size-limits. BONES T SOFT TISSUES: Unremarkable. CONCLUSION: No acute thoracic abnormality. Dictated by: Rhonda Garcia M.D. on 11/24/2017 at 14:53 Electronically approved by: Rhonda Garcia M.D. on 11/24/2017 at 14:53 Dictated By: RHONDA GARCIA MD [id number] Transcribed By: ADAM on 11/24/17 [id number] COPY TO: CHRISTIANO LOZANO MD FOOT LEFT COMPLETE 2017-11-24 14:49:00 [place] [address] Patient Name: LANA MCMILLAN MR #: [id number] : 1945 Age/Sex: 72/M Req #: [id number] Adm Physician: CHRISTIANO LOZANO MD Ordered by: Jessie POSADAS DPM Report #: [id number] Location: MED/SURG3 Room/Bed: [facility] Procedure: [id number] DX/FOOT LEFT COMPLETE Exam Date: 11/24/17 Exam Time: 1400 REPORT STATUS: Signed PROCEDURE: X-RAY LEFT FOOT, COMPLETE COMPARISON: None. INDICATIONS: OSTEOMYELITIS FINDINGS: The bones are diffusely demineralized. The first toe is amputated at the metatarsal head with a small amount of air or scar at the tibial margin of the first metatarsal. There is no evidence of cortical irregularity or periosteal new bone formation at the osteotomy site. The remainder of the digits are intact without focal osseous lesion or periosteal new bone formation. The mid foot and hindfoot are intact with a small plantar calcaneal spur. Diffuse soft tissue swelling of the forefoot without radiopaque foreign body. Extensive vascular calcifications are present. CONCLUSION: No radiographic evidence of osteomyelitis. Dictated by: Rhonda Garcia M.D. on 11/24/2017 at 14:49 Electronically approved by: Rhonda Garcia M.D. on 11/24/2017 at 14:49 Dictated By: RHONDA GARCIA MD 1449 Transcribed By: ADAM on 11/24/17 1449 COPY TO: Jessie POSADAS DPM
== END | disposition home or self-care (01) ==
LOC: OR 05:23
PROVIDERS: ATTEND Podiatrist Foot & Ankle Surgery
DX: E11.69 Type 2 diabetes mellitus with other specified complication (principal); M86.8X7 Other osteomyelitis, ankle and foot; E11.621 Type 2 diabetes mellitus with foot ulcer; L97.529 Non-pressure chronic ulcer of other part of left foot with unspecified severity; Z79.4 Long term (current) use of insulin; M85.872 Other specified disorders of bone density and structure, left ankle and foot; M84.675A Pathological fracture in other disease, left foot, initial encounter for fracture; I11.0 Hypertensive heart disease with heart failure; I50.9 Heart failure, unspecified; M17.0 Bilateral primary osteoarthritis of knee; E03.9 Hypothyroidism, unspecified; Z01.810 Encounter for preprocedural cardiovascular examination; Z01.812 Encounter for preprocedural laboratory examination; Z01.818 Encounter for other preprocedural examination; Z79.02 Long term (current) use of antithrombotics/antiplatelets; Z79.82 Long term (current) use of aspirin
CPT/HCPCS: 36415; 71046; 80048; 82948; 85025; 87071; 87075; 87205; 88305; 88307; 88311; 93005; J0690; J1100; J2001; J2405

== ENCOUNTER → 2018-09-08 | Day surgery (SDC) | payer BC, MEDICARE ==
[2018-09-04 11:22] LABS: BASOPHILS # (AUTO) 0.1 (0.0-0.1); BASOPHILS % 0.7 % (0.0-1.0); EOSINOPHILS # (AUTO) 0.8 (0.0-0.4); EOSINOPHILS % 9.4 % (0.0-6.0); HEMATOCRIT 35.4 % (38.2-49.6); HEMOGLOBIN 11.1 g/dL (14.0-18.0); LYMPHOCYTES # (AUTO) 1.8 (1.0-3.2); LYMPHOCYTES % 22.3 % (18.0-39.1); MEAN CORPUSCULAR HEMOGLOBIN 28.3 pg (28-32); MEAN CORPUSCULAR HGB CONC 31.4 g/dL (31-35); MEAN CORPUSCULAR VOLUME 90.3 fL (81-99); MONOCYTES # (AUTO) 0.7 (0.2-0.8); MONOCYTES % 8.2 % (4.4-11.3); NEUTROPHILS # (AUTO) 4.8 (2.1-6.9); NEUTROPHILS % 58.8 % (38.7-80.0); PLATELET COUNT 247 x10e3/uL (140-360); RED BLOOD COUNT 3.92 x10e6/uL (4.3-5.7); RED CELL DISTRIBUTION WIDTH 16.7 % (11.7-14.4)
[2018-09-04 11:36] LABS: ANION GAP 13.1 mmol/L (8-16); CALCIUM 9.3 mg/dL (8.4-10.2); CREATININE, SERUM 2.87 mg/dL (0.72-1.25); POTASSIUM 4.1 mmol/L (3.5-5.1)
--- NOTE | 2018-09-04 11:50 | Diagnostic Imaging Report ---
EXAMINATION: PA and lateral views of the chest. COMPARISON: 03/16/2018 CLINICAL HISTORY: Preoperative study for foot surgery DISCUSSION: Lines/tubes: None. Lungs: The lungs are well inflated and clear. There is no evidence of pneumonia or pulmonary edema. Pleura: There is no pleural effusion or pneumothorax. Heart and mediastinum: The cardiomediastinal silhouette is normal. Bones and soft tissues: No acute bony abnormalities. Degenerative changes in the thoracic spine IMPRESSION: No acute cardiopulmonary abnormalities. Signed by: Dr. Eliseo De La Vega M.D. on 09/04/2018 11:46 AM
[~2018-09-08] MED LIST changes: +BACITRACIN 50,000 UNIT VIAL ONE; +CEFAZOLIN SOD 1 GM/NS 50ML 50 ML IV ONE; +CIPRO500 MG PO; +CRESTOR10 MG PO; -FENTANYL CITRATE/PF 100MCG/2 ML INJ ONE; -LIDOCAINE HCL 2% LOCAL INJ 5 ML SDV VIAL INJ ONE; -ONDANSETRON HCL INJ 2 MG/ML VIAL ONE; -SEVOFLURANE INHAL SOLN 250 ML PEN BTL ONE
--- OUTSIDE RECORDS SUMMARY | 2018-09-08 05:30 | XMS REPORT | Summary of Care ---
Author Author [facility] Organization [facility] Address Unknown Phone Unavailable Encounter HQ Encntr_alias(FIN) [id number] Date(s): 12/15/17 - 12/15/17 [facility] [address] [place] [address]- Encounter Diagnosis Osteomyelitis, unspecified (Final) - 12/26/17 Discharge Disposition: Home or Self Care Attending Physician: Zaria Triplett MD Referring Physician: Zraia Triplett MD Vital Signs No data available for this section Problem List No data available for this section Allergies, Adverse Reactions, Alerts No data available for this section Medications No data available for this section Results No data available for this section Immunizations No data available for this section Procedures No data available for this section Social History No data available for this section Assessment and Plan No data available for this section
--- OUTSIDE RECORDS SUMMARY | 2018-09-08 05:30 | XMS REPORT | Continuity of Care Document ---
Author Author [facility] Interface Address Unknown Phone Unavailable Problems Problem Status Onset Date Classification Date Reported Comments Source Osteomyelitis, unspecified 12/27/2017 07/04/2018 [facility] OSTEOMYELITIS (CENTRAL LINE) Active 12/11/2017 [facility] OSTEOMYELITIS Active 10/25/2016 [facility] Medications Medication Details Route Status Patient Instructions Ordering Provider Order Date Source Allergies, Adverse Reactions, Alerts Substance Category Reaction Severity Reaction type Status Date Reported Comments Source Immunizations Immunization Date Given Site Status Last Updated Comments Source Results Order Name Results Value Reference Range Date Interpretation Comments Source CVC insert non-tunnel age 5+ yrs VR CVC insert non-tunnel age 5+ yrs VR Patient Name: LANA MCMILLAN : 1945 Age: 72 years, Male MR: [id number] Study: CVC insert non-tunnel age 5+ yrs VR 12/15/2017 8:42 AM CDT Examination: Temporary central venous catheter placement. 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 Preoperative diagnosis: Need for central venous access. Postoperative diagnosis: Need for central venous access. Procedure: Temporary central venous catheter placement utilizing ultrasound guidance. Pain control: Subcutaneous 1% lidocaine for local anesthesia. Estimated blood loss: Less than 2 cc. Implants/grafts: Temporary triple-lumen central venous catheter. Blood products administered: None Specimens: None Complications: None immediate. Condition at procedure completion: Stable Disposition: PACU Clinical discussion: The clinical need for central venous access was confirmed. The risks and benefits of the procedure were discussed with the patient. Questions were answered. An informed consent was obtained. Focused sonographic evaluation of the right neck demonstrated a patent and compressible right internal jugular vein. A safe approach was determined. Technique: The right neck was prepped and draped in the usual sterile fashion. 1% lidocaine was infused into the subcutaneous tissues for local anesthesia. Utilizing direct ultrasound guidance, a 21-gauge needle was advanced into the right internal jugular vein. A 0.018 inch wire was advanced centrally. An access sheath was advanced over the wire to secure the venous access. The wire was upsized to a 0.035 inch wire. A single dilation was performed over the wire. A temporary central venous catheter was advanced over the wire. The wire was removed. The ports demonstrated proper function with aspiration and flush of saline. The lumens were flushed with sterile saline. The catheter was secured to the skin with 3-0 Ethilon suture. A sterile dressing was applied. The patient tolerated the procedure well. There were no immediate complications. The patient was transferred to the postprocedure area in stable unchanged condition for further monitoring. Impression: Successful placement of a temporary central venous catheter utilizing ultrasound guidance. : [id number] 12/15/2017 - - Read by: Obi Pena MD Dictated Date/time: 12/15/17 08:52 Electronically Signed by: Obi Pena MD 12/15/17 08:56 FINAL REPORT [facility] Chest 1 v for Placement DX Chest 1 v for Placement DX Portable chest: The right jugular central line is in satisfactory position with the tip at the cavoatrial junction. There is no evidence of pneumothorax. The cardiac silhouette and pulmonary vasculature are within normal limits. The lungs and pleural spaces are clear. There is no other significant change compared to 10/29/2016. [id number] 12/15/2017 - - Read by: Eliseo Mata MD Dictated Date/time: 12/15/17 08:45 Electronically Signed by: Eliseo Mata MD 12/15/17 08:46 FINAL REPORT [facility] CVC insert non-tunnel age 5+ yrs VR CVC insert non-tunnel age 5+ yrs VR Patient Name: LANA MCMILLAN : 1945; Age: 71 years Male MR: [id number] Study: CVC insert non-tunnel age 5+ yrs VR 10/29/2016 2:06 PM CDT PROCEDURE: Ultrasound-guided placement of a right IJ central catheter CLINICAL INFORMATION: Need for IV access CONSENT: The procedure, risks, benefits and alternatives were discussed with the patient and written informed consent was obtained. A "time out" was performed per protocol prior to the procedure. 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 The patient's right neck was prepped and draped in maximal sterile fashion. Preprocedure ultrasound demonstrated a patent right internal jugular vein and an image stored in the medical record. The overlying skin was anesthetized with 1% lidocaine. Under sterile ultrasound guidance, an 18-gauge needle was advanced into the right internal jugular vein. Following placement of a 0.035 inch wire and tract dilatation, a 7 [place] triple-lumen catheter (Arrow) was advanced over the wire. The wire was removed and the ports were flushed with saline. The catheter was affixed to the skin and sterile dressings applied. Patient tolerated the procedure well without immediate complication. IMPRESSION: Successful placement of a right IJ triple-lumen catheter. SL: [id number] 10/29/2016 - - Read by: Mary Joseph MD Dictated Date/time: 10/29/16 17:14 Electronically Signed by: Mary Joseph MD 10/29/16 17:14 FINAL REPORT [facility] Chest 1 v for Placement DX Chest 1 v for Placement DX CHEST, ONE VIEW HISTORY: ; Line Placement - Chest 1 view for line placement; COMPARISON: None available. FINDINGS: The right chest central venous catheter terminates at the atriocaval junction. No pneumothorax. Lungs are clear. No pleural effusion. Normal mediastinum. Osseous structures unremarkable. SL: [id number] 10/29/2016 - - Read by: Nick Gordon MD Dictated Date/time: 10/29/16 14:01 Electronically Signed by: Nick Gordon MD 10/29/16 14:02 FINAL REPORT [facility] Vital Signs Vital Sign Value Date Comments Source Encounters Location Location Details Encounter Type Encounter Number Reason For Visit Attending Provider ADM Date DC Date Status Source [id number] Procedures Procedure Code Date Perfomer Comments Source
[2018-09-08 08:45] VITALS: BP 124/71
--- NOTE | 2018-09-09 13:15 | Operative Report ---
DATE OF PROCEDURE: 09/08/2018 SURGEON: Shabbir Bautista DPM PREOPERATIVE DIAGNOSIS: Right 3rd digit osteomyelitis. POSTOPERATIVE DIAGNOSIS: Right 3rd digit osteomyelitis. PLANNED PROCEDURE: Right 3rd digit amputation. 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 ESTIMATED BLOOD LOSS: Less than 10 mL. HEMOSTASIS: Esmarch tourniquet applied for approximately 10 minutes. MATERIALS: 3-0 nylon. PATHOLOGY: Anaerobic and aerobic cultures, bone sent for gross specimen. PROCEDURE NOTE: The patient was seen in the preoperative waiting room, where the correct procedure and site was identified. The patient brought in to the operating, placed on the operating table in supine position. General anesthesia was initiated. At this time, the right foot, ankle, and leg were then scrubbed, prepped, and draped in the usual aseptic manner. The right foot, ankle, and leg were exsanguinated with an Esmarch bandage and Esmarch tourniquet was applied for approximately 10 minutes. Attention was directed to the right foot, where a deep probing ulceration was noted to the distal tip of the patient's right 3rd digit with bone exposed and purulent drainage. The decision was made to proceed with a right 3rd digit amputation. The patient has a previous partial 5th ray amputation. Utilizing a #15 blade, two converging semi-elliptical incisions were made at the level of the 3rd metatarsophalangeal joint. Incision was carried down to the level of bone. Utilizing towel clamp, the distal digit was grasped. The 3rd metatarsophalangeal joint was easily identified and incised into and the digit was disarticulated and passed off to the back table. The wound was then flushed with copious amounts of sterile saline. The incision site was then prepped for closure by removing all dog-ears and debulking fat. The incision site was reapproximated utilizing simple interrupted sutures with 3-0 nylon. Incision site was then dressed with Adaptic, 4x4s, Kerlix, Juan wrap, and a postop shoe. The patient tolerated procedure and anesthesia well. The patient was transferred to the postoperative recovery room with vital signs stable and vascular status intact. The patient is monitored there for a short period time before being sent home with the following written and oral instructions. 1. Keep the dressing clean, dry, intact. 2. The patient is to remain minimal heel touch partial weightbearing in a postop shoe and to avoid excessive ambulation until being seen in the office. 3. The patient was given the office number and instructed to contact us if any problems should arise. JAYLIN Hugo/NOMAN /[id number]
== END | disposition home or self-care (01) ==
LOC: OR 05:28
PROVIDERS: ATTEND Podiatrist Foot & Ankle Surgery
DX: M86.171 Other acute osteomyelitis, right ankle and foot (principal); M86.671 Other chronic osteomyelitis, right ankle and foot; Z89.421 Acquired absence of other right toe(s); E11.22 Type 2 diabetes mellitus with diabetic chronic kidney disease; I13.0 Hypertensive heart and chronic kidney disease with heart failure and stage 1 through stage 4 chronic kidney disease, or unspecified chronic kidney disease; N18.9 Chronic kidney disease, unspecified; I50.9 Heart failure, unspecified; Z01.810 Encounter for preprocedural cardiovascular examination; Z01.812 Encounter for preprocedural laboratory examination; Z01.818 Encounter for other preprocedural examination; Z79.02 Long term (current) use of antithrombotics/antiplatelets; Z79.82 Long term (current) use of aspirin; Z79.4 Long term (current) use of insulin
CPT/HCPCS: 28820; 36415 ×2; 71046; 80048; 82948; 85025; 88305; 88311; 93005; J0690; J2704; 88304; J1100

== ENCOUNTER → 2023-08-26 | Outpatient (REF) | payer BC, MEDICARE ==
[~2023-08-26] MED LIST changes: +ACETAMINOPHEN325 M1 PO; +ALLOPURINOL100 MG PO; +ASCORBIC ACID500 MG PO; -BACITRACIN 50,000 UNIT VIAL ONE; +BAQSIMI3 MG PO; -BUPIVACAINE HCL 0.5% INJ 30 ML VIAL INJ ONE; -CEFAZOLIN SOD 1 GM/NS 50ML 50 ML IV ONE; +CEFTRIAXONE1 GM IV; +CEPHALEXIN500 MG PO; +COLLAGENASE OINTMENT 30 GM TUBE ONE; +Cyanocobalamin Inj IM; -DEXAMETHASONE SOD PHOS INJ 4 MG/ML VIAL ONE; +DOCUSATE SODIU100 MG PO; +FEROSUL325 MG PO; +FOLIC ACID0.8 MG PO; +HUMULIN R100 UNIT/2 INJ; +MIRALAX17 GM PO; +ONDANSETRON ODT4 MG PO; -PROPOFOL IV EMULSION 10 MG/ML 20 ML VIAL ONE; +RAYALDEE30 MCG; +RAYALDEE30 MCG PO; +RETACRIT10000 UNIT SC; +VITAMIN C500 M2 PO; +ZINC SULFATE50 MG PO
== END ==
LOC: WCC 16:04
PROVIDERS: ATTEND Nurse Practitioner Family
DX: T86.821 Skin graft (allograft) (autograft) failure (principal); E11.621 Type 2 diabetes mellitus with foot ulcer; L97.518 Non-pressure chronic ulcer of other part of right foot with other specified severity; L97.519 Non-pressure chronic ulcer of other part of right foot with unspecified severity; B96.29 Other Escherichia coli [E. coli] as the cause of diseases classified elsewhere; B95.1 Streptococcus, group B, as the cause of diseases classified elsewhere